=== PATIENT | male | born 1995 | race Two or more races ===

== ENCOUNTER 2025-05-15 11:16 | Emergency (ER) | payer OTHER ==
[~2025-05-15] VITALS: Ht 180.3 cm; Wt 117.9 kg
== END 2025-05-15 12:52 | disposition home or self-care (01) ==
LOC: ER 11:16
DX: L02.818 Cutaneous abscess of other sites (principal)

== ENCOUNTER 2025-06-04 10:49 | Emergency (ER) | payer OTHER ==
[~2025-06-04] VITALS: Ht 180.3 cm; Wt 117.9 kg
[2025-06-04] MEDS ORDERED: KETOROLAC TROMETHAMINE 60 MG VIAL IM ONE (11:45)
== END 2025-06-04 14:17 | disposition home or self-care (01) ==
LOC: ER 10:49
DX: G89.11 Acute pain due to trauma (principal); M79.644 Pain in right finger(s)